=== PATIENT | male | born 1950 | race Caucasian/White ===

== ENCOUNTER 2024-05-06 12:06 | Inpatient (IN) | payer OTHER ==
[~2024-05-06] VITALS: Ht 185.4 cm; Wt 108.5 kg
[2024-05-06] MEDS ORDERED: MIRALAX *UNIT DOSE* 17GM PACKET PO PRN (14:20)
[2024-05-06] MEDS ORDERED: MAALOX 30 ML SUSP *UDC PO PRN (14:20)
[2024-05-06] MEDS ORDERED: FLEET ENEMA PR PRN (14:20)
[2024-05-06] MEDS ORDERED: MOM 30ML SUSPENSION UDC PO PRN (14:20)
[2024-05-06 15:00] VITALS: BP 180/80; TEMP 97.3; O2SAT 97
[2024-05-06] MEDS ORDERED: INSU100V6 INJ (16:04)
[2024-05-06] MEDS ORDERED: ATOR40TA75 PO (16:04)
[2024-05-06] MEDS ORDERED: PANT40TA29 PO (16:04)
[2024-05-06] MEDS ORDERED: LOPR1TAB6 PO (16:04)
[2024-05-06] MEDS ORDERED: JANU100T PO (16:04)
[2024-05-06] MEDS ORDERED: ELIQ5TAB PO (16:04)
[2024-05-06] MEDS ORDERED: METF-838 PO (16:04)
[2024-05-06] MEDS ORDERED: LISI2.5T9 PO (16:04)
[2024-05-06] MEDS ORDERED: ACET-910 PO (16:04)
[2024-05-06] MEDS ORDERED: JARD1TAB3 PO (16:04)
[2024-05-06] MEDS ORDERED: HOME MED LIST COMPLETE! XX SCH (16:10)
[2024-05-06] MEDS ORDERED: GLUCOSE 4 GM CHEW PO PRN (16:40)
[2024-05-06] MEDS ORDERED: DEXTROSE 50% 50ML SYRINGE IV PRN (16:40)
[2024-05-06] MEDS ORDERED: GLUCAGON INJ 1MG VIAL SC PRN (16:40)
[2024-05-06] MEDS: INSULIN LISPRO (NovoLOG) PER UNIT SC SCH (18:16)
[2024-05-06 19:31] VITALS: BP 152/69; TEMP 96.8; O2SAT 93
[2024-05-06] MEDS: APIXABAN 5 MG TAB (ELIQUIS) PO SCH (20:16)
[2024-05-06] MEDS: ATORVASTATIN 20 MG TAB PO SCH (20:16)
[2024-05-06] MEDS: METOPROLOL TART 50 MG TAB PO SCH (20:16)
[2024-05-06] MEDS: SENNA 8.6 MG TAB (SENOKOT) PO SCH (20:17)
[2024-05-07 04:30] VITALS: BP 158/79; TEMP 97.3; O2SAT 94
[2024-05-07 06:38] LABS: BASO # 0.1 10^3/uL (0.0-0.2); BASO % 1.2 % (0.0-1.0); EOS # 0.2 10^3/uL (0.0-0.5); EOS % 2.5 % (0.0-3.0); HEMATOCRIT 48.1 % (42.0-52.0); HEMOGLOBIN 15.7 g/dl (13.5-17.5); LYMPH # 1.6 10^3/uL (1.5-5.0); LYMPH % 17.6 % (24.0-44.0); MEAN CORPUSCULAR HEMOGLOBIN 30.1 pg (27.0-33.0); MEAN CORPUSCULAR HGB CONC 32.6 g/dl (32.0-36.5); MEAN CORPUSCULAR VOLUME 92.1 fl (80.0-96.0); MONO % 11.1 % (2.0-8.0); NEUTROPHILS # 6.1 10^3/uL (1.5-8.5); NEUTROPHILS % 67.3 % (36.0-66.0); PLATELET COUNT, AUTOMATED 269 10^3/uL (150-450); RED BLOOD COUNT 5.22 10^6/uL (4.30-6.10); WHITE BLOOD COUNT 9.1 10^3/uL (4.0-10.0)
[2024-05-07 07:00] LABS: BLOOD UREA NITROGEN 22 MG/DL (9-23); CALCIUM LEVEL 8.6 MG/DL (8.3-10.6); CARBON DIOXIDE LEVEL 23 MMOL/L (20-31); CHLORIDE LEVEL 110 MMOL/L (98-107); GLOMERULAR FILTRATION RATE > 60.0 (>42); GLUCOSE, FASTING 127 MG/DL (74-106); POTASSIUM SERUM 4.1 MMOL/L (3.5-5.1); SODIUM LEVEL 141 MMOL/L (136-145)
[2024-05-07] MEDS: metFORMIN XR 500MG TAB *GLUCOPHAGE XR PO SCH (08:02)
[2024-05-07] MEDS: PANTOPRAZOLE 40MG TAB (PROTONIX) PO SCH (08:03)
[2024-05-07] MEDS: LISINOPRIL *2.5 MG* TAB PO SCH (08:03)
[2024-05-07] MEDS: MIRALAX *UNIT DOSE* 17GM PACKET PO SCH (08:03)
[2024-05-07] MEDS ORDERED: PANTOPRAZOLE 40MG TAB (PROTONIX) PO SCH (09:00)
[2024-05-07] MEDS ORDERED: METAMUCIL (PSYLLIUM) PACKET PO SCH (09:00)
[2024-05-07 12:00] VITALS: BP 152/80; TEMP 97.4; O2SAT 96
[2024-05-07] MEDS: ACETAMINOPHEN TAB 650MG DOSE (2X325MG) PO PRN (14:05)
[2024-05-07] MEDS: BISACODYL 10MG SUPP PR PRN (18:21)
[2024-05-07 20:00] VITALS: BP 120/59; TEMP 97.4; O2SAT 97
[2024-05-07] MEDS: FIBER-CON 625 MG TAB PO SCH (20:03)
[2024-05-08 04:00] VITALS: BP 121/62; TEMP 97; O2SAT 97
[2024-05-08 07:42] VITALS: BP 120/70
[2024-05-08] MEDS: lisinopriL 5 MG TAB PO SCH (07:46)
[2024-05-08 12:00] VITALS: BP 105/57; TEMP 97.3; O2SAT 97
[2024-05-08 20:00] VITALS: BP 119/56; TEMP 97.5; O2SAT 93
[2024-05-09 04:00] VITALS: BP 124/68; TEMP 97; O2SAT 97
[2024-05-09 08:05] VITALS: BP 120/70
[2024-05-09 12:00] VITALS: BP 112/60; TEMP 97.5; O2SAT 94
[2024-05-09] MEDS: FIBER-CON 625 MG TAB PO SCH (15:45)
[2024-05-09 20:00] VITALS: BP 126/58; TEMP 97.9; O2SAT 97
[2024-05-10 04:00] VITALS: BP 105/59; TEMP 98.1; O2SAT 95
[2024-05-10] MEDS ORDERED: VARIBAR PUDDING 40% w/v 230ML TUBE As Ordered ONE (11:16)
[2024-05-10] MEDS ORDERED: VARIBAR NECTAR 40% w/v 240ML SUSP BTL As Ordered ONE (11:16)
[2024-05-10] MEDS ORDERED: BARIUM SULFATE 700 MG TABLET (E-Z-DISK) As Ordered ONE (11:17)
[2024-05-10] MEDS ORDERED: E-Z-PAQUE 96% w/w SUSP 176GM BTL As Ordered ONE (11:17)
[2024-05-10 13:43] VITALS: BP 107/59; TEMP 97.4; O2SAT 94
[2024-05-10 20:00] VITALS: BP 130/61; TEMP 98.4; O2SAT 94
[2024-05-11 04:00] VITALS: BP 133/82; TEMP 97.7; O2SAT 97
[2024-05-11] MEDS: SITagliptin 50 MG TAB (JANUVIA) PO SCH (08:35)
[2024-05-11 12:00] VITALS: BP 134/61; TEMP 99.1; O2SAT 97
[2024-05-11 20:00] VITALS: BP 117/55; TEMP 98.2; O2SAT 96
[2024-05-11] MEDS: ONDANSETRON 4MG TAB PO PRN (20:23)
[2024-05-11] MEDS: LOPERAMIDE 2 MG CAPLET PO PRN (20:23)
[2024-05-12 04:00] VITALS: BP 111/58; TEMP 97.8; O2SAT 95
[2024-05-12 12:00] VITALS: BP 103/57; TEMP 98.7; O2SAT 96
[2024-05-12 20:00] VITALS: BP 117/56; TEMP 98.3; O2SAT 94
[2024-05-13 04:00] VITALS: BP 124/60; TEMP 98.2; O2SAT 96
[2024-05-13 12:00] VITALS: BP 109/56; TEMP 98.2; O2SAT 99
[2024-05-13 20:00] VITALS: BP 123/65; TEMP 99; O2SAT 95
[2024-05-14 04:00] VITALS: BP 111/58; TEMP 98.2; O2SAT 95
[2024-05-14] MEDS: SIMETHICONE 80MG CHEW TAB PO PRN (08:30)
[2024-05-14] MEDS: **hydrALAZINE HCL** 25 MG TAB PO PRN (08:40)
[2024-05-14 12:00] VITALS: BP 120/70; TEMP 97.7; O2SAT 95
[2024-05-14] MEDS: ACETAMINOPHEN 500 MG TAB PO SCH (16:29)
[2024-05-14 20:00] VITALS: BP 100/54; TEMP 97.7; O2SAT 95
[2024-05-15 04:00] VITALS: BP 137/66; TEMP 98; O2SAT 97
[2024-05-15] MEDS: FIBER-CON 625 MG TAB PO SCH (08:51)
[2024-05-15] MEDS: LIDOCAINE 5% (LIDODERM) PATCH TD SCH (08:54)
[2024-05-15] MEDS: METHYLPHENIDATE 5 MG TAB PO STA (10:58)
[2024-05-15 12:00] VITALS: BP 108/56; TEMP 98.4; O2SAT 99
[2024-05-15] MEDS: METHYLPHENIDATE 5 MG TAB PO SCH (16:51)
[2024-05-15 20:00] VITALS: BP 111/58; TEMP 98.1; O2SAT 98
[2024-05-16 04:00] VITALS: BP 101/50; TEMP 98.2; O2SAT 99
[2024-05-16 12:00] VITALS: BP 107/56; TEMP 99.4; O2SAT 96
[2024-05-16 20:00] VITALS: BP 131/60; TEMP 98.3; O2SAT 96
[2024-05-17 04:00] VITALS: BP 129/60; TEMP 97.9; O2SAT 97
[2024-05-17] MEDS: METHYLPHENIDATE 5 MG TAB PO SCH (06:11)
[2024-05-17 11:05] VITALS: BP 142/65; O2SAT 98
[2024-05-17 12:02] VITALS: BP 142/64; TEMP 98.8; O2SAT 98
[2024-05-17] MEDS ORDERED: ERYTHROMYCIN OPHTH OINT OS ONE (15:00)
[2024-05-17] MEDS: ARTIFICIAL TEARS DROPS 15ML BTL (VISINE DRY RELIEF) OU SCH (17:52)
[2024-05-17] MEDS: ERYTHROMYCIN OPHTH OINT OS SCH (17:52)
[2024-05-17 20:00] VITALS: BP 128/64; TEMP 98.5; O2SAT 95
[2024-05-18 04:00] VITALS: BP 117/64; TEMP 98.4; O2SAT 95
[2024-05-18 12:00] VITALS: BP 128/62; TEMP 98.3; O2SAT 98
[2024-05-18 20:00] VITALS: BP 121/69; TEMP 98.5; O2SAT 96
[2024-05-19 04:00] VITALS: BP 152/78; TEMP 98.2; O2SAT 93
[2024-05-19 07:28] VITALS: BP 137/68
[2024-05-19 12:00] VITALS: BP 132/62; TEMP 97.8; O2SAT 97
[2024-05-19 20:00] VITALS: BP 138/64; TEMP 97.2; O2SAT 97
[2024-05-20 04:00] VITALS: BP 141/66; TEMP 98.2; O2SAT 96
[2024-05-20] MEDS: ACETAMINOPHEN TAB 650MG DOSE (2X325MG) PO ONE (05:15)
[2024-05-20 12:00] VITALS: BP 138/72; TEMP 98.4; TEMP 98.5; O2SAT 96; O2SAT 98
[2024-05-20] MEDS ORDERED: ACETAMINOPHEN TAB 650MG DOSE (2X325MG) PO PRN (13:00)
[2024-05-20 13:02] VITALS: BP 150/80; TEMP 97.8; O2SAT 94
[2024-05-20] MEDS: guaiFENesin SYRUP 200MG 10ML UDC PO ONE (13:51)
[2024-05-20 20:00] VITALS: BP 149/65; TEMP 98.6; O2SAT 92
[2024-05-21] MEDS: BISACODYL 5MG TAB PO PRN (00:04)
[2024-05-21 04:00] VITALS: BP 141/65; TEMP 97.5; O2SAT 96
[2024-05-21] MEDS: guaiFENesin SYRUP 200MG 10ML UDC PO SCH (07:58)
[2024-05-21 12:00] VITALS: BP 157/69; TEMP 98.6; O2SAT 95
[2024-05-21 20:00] VITALS: BP 119/58; TEMP 98.6; O2SAT 98
[2024-05-22 00:50] VITALS: O2SAT 98
[2024-05-22 04:00] VITALS: BP 115/55; TEMP 98.3; O2SAT 96
[2024-05-22 12:00] VITALS: BP 128/64; TEMP 98.9; O2SAT 96
[2024-05-22 19:25] VITALS: BP 132/63; TEMP 97.8; O2SAT 96
[2024-05-23 04:14] VITALS: BP 140/66; TEMP 98.7; O2SAT 96
[2024-05-23 11:43] VITALS: BP 115/58; TEMP 98.7; O2SAT 98
[2024-05-23] MEDS: BACLOFEN 5MG PER 1/2 TABLET PO SCH (14:24)
[2024-05-23 20:00] VITALS: BP 138/63; TEMP 98.2; O2SAT 93
[2024-05-24 03:09] VITALS: BP 132/60; TEMP 98.6; O2SAT 95
[2024-05-24 06:51] LABS: BASO # 0.1 10^3/uL (0.0-0.2); BASO % 1.4 % (0.0-1.0); EOS # 0.3 10^3/uL (0.0-0.5); EOS % 5.2 % (0.0-3.0); HEMATOCRIT 41.4 % (42.0-52.0); HEMOGLOBIN 13.7 g/dl (13.5-17.5); LYMPH # 1.7 10^3/uL (1.5-5.0); LYMPH % 33.1 % (24.0-44.0); MEAN CORPUSCULAR HEMOGLOBIN 30.3 pg (27.0-33.0); MEAN CORPUSCULAR HGB CONC 33.1 g/dl (32.0-36.5); MEAN CORPUSCULAR VOLUME 91.6 fl (80.0-96.0); MONO # 0.6 10^3/uL (0.0-0.8); MONO % 12.4 % (2.0-8.0); NEUTROPHILS # 2.5 10^3/uL (1.5-8.5); NEUTROPHILS % 47.7 % (36.0-66.0); PLATELET COUNT, AUTOMATED 217 10^3/uL (150-450); RED BLOOD COUNT 4.52 10^6/uL (4.30-6.10); WHITE BLOOD COUNT 5.2 10^3/uL (4.0-10.0)
[2024-05-24 07:19] LABS: BLOOD UREA NITROGEN 10 MG/DL (9-23); CALCIUM LEVEL 8.5 MG/DL (8.3-10.6); CARBON DIOXIDE LEVEL 26 MMOL/L (20-31); CHLORIDE LEVEL 111 MMOL/L (98-107); CREATININE FOR GFR 0.96 MG/DL (0.70-1.30); GLOMERULAR FILTRATION RATE > 60.0 (>42); GLUCOSE, FASTING 136 MG/DL (74-106); SODIUM LEVEL 140 MMOL/L (136-145)
[2024-05-24 12:00] VITALS: BP 140/70; TEMP 98.8; O2SAT 100
[2024-05-24 20:00] VITALS: BP 121/52; TEMP 98.3; O2SAT 96
[2024-05-25 04:00] VITALS: BP 128/58; TEMP 97.7; O2SAT 97
[2024-05-25 12:00] VITALS: BP 126/89; TEMP 98.2; O2SAT 100
[2024-05-25 20:00] VITALS: BP 115/58; TEMP 98.3; O2SAT 97
[2024-05-26 04:00] VITALS: BP 117/56; TEMP 98.1; O2SAT 97
[2024-05-26 12:00] VITALS: BP 120/62; TEMP 97.7; O2SAT 97
[2024-05-26 19:36] VITALS: BP 148/70; TEMP 98.6; O2SAT 93
[2024-05-26] MEDS: BACLOFEN 10 MG TAB PO SCH (20:28)
[2024-05-27 04:06] VITALS: BP 110/59; TEMP 97.9; O2SAT 96
[2024-05-27] MEDS ORDERED: PERMETHRIN 5% CREAM 60 GM TOP ONE (10:55)
[2024-05-27 12:00] VITALS: BP 138/60; TEMP 97.7; O2SAT 94
[2024-05-27 20:00] VITALS: BP 161/74; TEMP 98.1; O2SAT 95
[2024-05-28 04:00] VITALS: BP 158/66; TEMP 98.4; O2SAT 95
[2024-05-28 07:32] VITALS: BP 158/68
[2024-05-28 12:00] VITALS: BP 129/66; TEMP 98.4; O2SAT 97
[2024-05-28] MEDS: FAMOTIDINE 20 MG TAB PO ONE (12:52)
[2024-05-28] MEDS ORDERED: BACL10TA2 PO (14:31)
[2024-05-28] MEDS ORDERED: ACET-683 PO (14:31)
[2024-05-28] MEDS ORDERED: ONDA-83 PO (14:31)
[2024-05-28] MEDS ORDERED: ACET1TAB55 PO (14:31)
[2024-05-28] MEDS ORDERED: LISI5TAB11 PO (14:31)
[2024-05-28] MEDS ORDERED: FAMO20TA PO (14:31)
[2024-05-28] MEDS ORDERED: Peg 400/Hypromellose/Glycerin OU (14:31)
[2024-05-28] MEDS ORDERED: SIME80TA16 PO (14:31)
[2024-05-28] MEDS ORDERED: METH5TAB76 PO (14:31)
[2024-05-28] MEDS ORDERED: BISAC5TA PO (14:31)
[2024-05-28] MEDS ORDERED: LIDO5TD TD (14:31)
[2024-05-28] MEDS ORDERED: FIBE62TA PO (14:31)
[2024-05-28 21:45] VITALS: BP 150/70; TEMP 97.9; O2SAT 92
[2024-05-28] MEDS: FAMOTIDINE 20 MG TAB PO SCH (21:50)
[2024-05-28 22:31] VITALS: BP 150/70; TEMP 97.9; O2SAT 92
[2024-05-28 22:57] LABS: BASO # 0.1 10^3/uL (0.0-0.2); BASO % 0.8 % (0.0-1.0); EOS # 0.2 10^3/uL (0.0-0.5); EOS % 2.5 % (0.0-3.0); HEMATOCRIT 43.5 % (42.0-52.0); HEMOGLOBIN 14.6 g/dl (13.5-17.5); LYMPH % 22.8 % (24.0-44.0); MEAN CORPUSCULAR HEMOGLOBIN 30.9 pg (27.0-33.0); MEAN CORPUSCULAR HGB CONC 33.6 g/dl (32.0-36.5); MONO # 1.1 10^3/uL (0.0-0.8); MONO % 12.8 % (2.0-8.0); NEUTROPHILS # 5.3 10^3/uL (1.5-8.5); NEUTROPHILS % 60.9 % (36.0-66.0); PLATELET COUNT, AUTOMATED 217 10^3/uL (150-450); RED BLOOD COUNT 4.73 10^6/uL (4.30-6.10); WHITE BLOOD COUNT 8.7 10^3/uL (4.0-10.0)
[2024-05-28 23:09] LABS: INR 1.38; PARTIAL THROMBOPLASTIN TIME 36.1 SECONDS (24.8-34.2); PROTHROMBIN TIME 16.5 SECONDS (12.5-14.5)
[2024-05-28 23:30] LABS: ALKALINE PHOSPHATASE 71 U/L (46-116); ALT/SGPT 28 U/L (7.0-40); AST/SGOT 29 U/L (<34); BILIRUBIN,TOTAL 0.7 MG/DL (0.3-1.2); BLOOD UREA NITROGEN 12 MG/DL (9-23); CALCIUM LEVEL 9.2 MG/DL (8.3-10.6); CARBON DIOXIDE LEVEL 25 MMOL/L (20-31); CHLORIDE LEVEL 111 MMOL/L (98-107); CREATININE FOR GFR 1.04 MG/DL (0.70-1.30); GLOMERULAR FILTRATION RATE > 60.0 (>42); GLUCOSE, FASTING 135 MG/DL (74-106); MAGNESIUM LEVEL 1.6 MG/DL (1.8-2.4); SODIUM LEVEL 142 MMOL/L (136-145); TOTAL PROTEIN 5.9 G/DL (5.7-8.2)
[2024-05-29] MEDS ORDERED: PANTOPRAZOLE 40MG VIAL IV ONE (00:40)
[2024-05-29] MEDS ORDERED: ONDANSETRON 4MG 2ML VIAL IV PRN (00:40)
[2024-05-29] MEDS ORDERED: METOPROLOL TART 50 MG TAB PO ONE (00:45)
[2024-05-29] MEDS ORDERED: MED REC COMMENT (07:46)
[2024-05-29] MEDS ORDERED: METOPROLOL TART 50 MG TAB PO SCH (09:00)
[2024-05-29] MEDS ORDERED: APIXABAN 5 MG TAB (ELIQUIS) PO SCH (09:00)
[2024-05-29] MEDS ORDERED: ASPI81CH8 PO (14:03)
[2024-05-29] MEDS ORDERED: ATORVASTATIN 20 MG TAB PO SCH (21:00)
== END 2024-05-28 23:45 | disposition short-term general hospital (02) | DRG 57 ==
LOC: M PM&R 14:49
PROVIDERS: ADMIT Physical Medicine & Rehabilitation; ATTEND Physical Medicine & Rehabilitation
DX: I69.353 Hemiplegia and hemiparesis following cerebral infarction affecting right non-dominant side (principal); I69.320 Aphasia following cerebral infarction; I69.391 Dysphagia following cerebral infarction; R07.89 Other chest pain; R13.10 Dysphagia, unspecified; I69.328 Other speech and language deficits following cerebral infarction; I10 Essential (primary) hypertension; R11.10 Vomiting, unspecified; E11.9 Type 2 diabetes mellitus without complications; H53.9 Unspecified visual disturbance; R19.7 Diarrhea, unspecified; I48.91 Unspecified atrial fibrillation; E78.5 Hyperlipidemia, unspecified; M25.511 Pain in right shoulder; H10.9 Unspecified conjunctivitis; I69.392 Facial weakness following cerebral infarction; Z74.09 Other reduced mobility; Z74.1 Need for assistance with personal care; Z79.4 Long term (current) use of insulin; Z79.899 Other long term (current) drug therapy; Z79.01 Long term (current) use of anticoagulants

== ENCOUNTER 2024-05-28 22:39 | Inpatient (IN) | payer OTHER ==
[~2024-05-28] VITALS: Ht 170.2 cm; Wt 105.1 kg
[~2024-05-28 22:39] MED LIST: ACET-683 PO; ACET-910 PO; ACET1TAB55 PO; ATOR40TA75 PO; BACL10TA2 PO; BISAC5TA PO; ELIQ5TAB PO; FAMO20TA PO; FIBE62TA PO; INSU100V6 INJ; JANU100T PO; JARD1TAB3 PO; LIDO5TD TD; LISI2.5T9 PO; LISI5TAB11 PO; LOPR1TAB6 PO; METF-838 PO; METH5TAB76 PO; ONDA-83 PO; PANT40TA29 PO; Peg 400/Hypromellose/Glycerin OU; SIME80TA16 PO
[2024-05-28 23:46] VITALS: BP 168/77; O2SAT 95
[2024-05-29] MEDS: NS 1,000 ML IV SCH ×2 (00:52→15:15)
[2024-05-29] MEDS: MAG SULF 1GM/100ML (MAG RUN) 1 GM in IV 1 EA IV ONE (00:53)
[2024-05-29] MEDS ORDERED: ONDANSETRON 4MG 2ML VIAL IV PRN (01:00)
[2024-05-29] MEDS: METOPROLOL 5 MG/5 ML VIAL IV STA (01:08)
[2024-05-29] MEDS: PANTOPRAZOLE 40MG VIAL IV ONE (01:18)
[2024-05-29] MEDS: METOPROLOL TART 50 MG TAB PO ONE (02:53)
[2024-05-29 04:27] VITALS: BP 155/69; TEMP 98.6; O2SAT 97
[2024-05-29 06:36] LABS: HEMATOCRIT 42.3 % (42.0-52.0); MEAN CORPUSCULAR HGB CONC 33.1 g/dl (32.0-36.5); MEAN CORPUSCULAR VOLUME 93.8 fl (80.0-96.0); PLATELET COUNT, AUTOMATED 194 10^3/uL (150-450); RED BLOOD COUNT 4.51 10^6/uL (4.30-6.10); WHITE BLOOD COUNT 6.2 10^3/uL (4.0-10.0)
[2024-05-29 07:03] LABS: ALKALINE PHOSPHATASE 66 U/L (46-116); ALT/SGPT 26 U/L (7.0-40); AST/SGOT 25 U/L (<34); BILIRUBIN,TOTAL 0.7 MG/DL (0.3-1.2); BLOOD UREA NITROGEN 12 MG/DL (9-23); CALCIUM LEVEL 8.5 MG/DL (8.3-10.6); CARBON DIOXIDE LEVEL 26 MMOL/L (20-31); CHLORIDE LEVEL 110 MMOL/L (98-107); CREATININE FOR GFR 0.97 MG/DL (0.70-1.30); GLOMERULAR FILTRATION RATE > 60.0 (>42); GLUCOSE, FASTING 129 MG/DL (74-106); MAGNESIUM LEVEL 1.9 MG/DL (1.8-2.4); SODIUM LEVEL 140 MMOL/L (136-145); TOTAL PROTEIN 5.6 G/DL (5.7-8.2)
[2024-05-29 07:44] VITALS: BP 160/74; TEMP 97.5; O2SAT 96
[2024-05-29] MEDS ORDERED: MED REC COMMENT (07:46)
[2024-05-29] MEDS ORDERED: HOME MED LIST COMPLETE! XX SCH (07:55)
[2024-05-29] MEDS: DOCUSATE SODIUM 100MG CAPSULE PO SCH (10:00)
[2024-05-29 12:00] VITALS: BP 145/62; TEMP 98.6; O2SAT 96
[2024-05-29] MEDS: APIXABAN 5 MG TAB (ELIQUIS) PO SCH (12:28)
[2024-05-29] MEDS: METOPROLOL TART 50 MG TAB PO SCH (12:31)
[2024-05-29] MEDS ORDERED: ASPI81CH8 PO (14:03)
[2024-05-29] MEDS: ASPIRIN 81MG CHEW TABLET PO ONE (15:28)
[2024-05-29 15:51] VITALS: BP 146/64; TEMP 98; O2SAT 96
[2024-05-29] MEDS: INSULIN LISPRO (NovoLOG) PER UNIT SC SCH ×2 (17:30→21:00)
[2024-05-29] MEDS ORDERED: GLUCAGON INJ 1MG VIAL SC PRN (18:25)
[2024-05-29] MEDS ORDERED: DEXTROSE 50% 50ML SYRINGE IV PRN (18:25)
[2024-05-29] MEDS ORDERED: GLUCOSE 4 GM CHEW PO PRN (18:25)
[2024-05-29 19:49] VITALS: BP 138/67; TEMP 97.7; O2SAT 96
[2024-05-29] MEDS: ACETAMINOPHEN TAB 650MG DOSE (2X325MG) PO PRN (22:04)
[2024-05-29] MEDS: ATORVASTATIN 20 MG TAB PO SCH (22:05)
[2024-05-30 03:59] VITALS: BP 142/63; TEMP 97.7; O2SAT 95
[2024-05-30 04:00] VITALS: BP 142/63; TEMP 97.7; O2SAT 95
[2024-05-30 06:05] LABS: HEMATOCRIT 41.4 % (42.0-52.0); HEMOGLOBIN 13.8 g/dl (13.5-17.5); MEAN CORPUSCULAR HEMOGLOBIN 30.9 pg (27.0-33.0); MEAN CORPUSCULAR HGB CONC 33.3 g/dl (32.0-36.5); MEAN CORPUSCULAR VOLUME 92.6 fl (80.0-96.0); PLATELET COUNT, AUTOMATED 194 10^3/uL (150-450); RED BLOOD COUNT 4.47 10^6/uL (4.30-6.10); WHITE BLOOD COUNT 5.7 10^3/uL (4.0-10.0)
[2024-05-30 06:34] LABS: ALBUMIN 2.8 G/DL (3.2-5.2); ALKALINE PHOSPHATASE 62 U/L (46-116); ALT/SGPT 25 U/L (7.0-40); AST/SGOT 32 U/L (<34); BILIRUBIN,TOTAL 0.9 MG/DL (0.3-1.2); BLOOD UREA NITROGEN 9 MG/DL (9-23); CALCIUM LEVEL 8.6 MG/DL (8.3-10.6); CARBON DIOXIDE LEVEL 26 MMOL/L (20-31); CHLORIDE LEVEL 113 MMOL/L (98-107); CREATININE FOR GFR 0.85 MG/DL (0.70-1.30); GLOMERULAR FILTRATION RATE > 60.0 (>42); GLUCOSE, FASTING 118 MG/DL (74-106); MAGNESIUM LEVEL 1.8 MG/DL (1.8-2.4); POTASSIUM SERUM 4.2 MMOL/L (3.5-5.1); SODIUM LEVEL 142 MMOL/L (136-145); TOTAL PROTEIN 5.5 G/DL (5.7-8.2)
[2024-05-30 08:00] VITALS: BP 155/68; TEMP 97.5; O2SAT 97
[2024-05-30] MEDS: ASPIRIN 81MG CHEW TABLET PO SCH (08:56)
[2024-05-30 08:57] VITALS: BP 155/68
[2024-05-30] MEDS: METOPROLOL TART 50 MG TAB PO SCH (08:57)
== END 2024-05-30 09:50 | DRG 65 ==
LOC: INTOOBSV 22:49 → M ED INP 22:49 → M PCU 05-29 00:13 → OBSVTOIN 05-29 15:16 → M MSPAV 05-29 18:48
PROVIDERS: ADMIT Preventive Medicine Undersea and Hyperbaric Medicine; ATTEND General Practice
DX: I63.512 Cerebral infarction due to unspecified occlusion or stenosis of left middle cerebral artery (principal); I69.351 Hemiplegia and hemiparesis following cerebral infarction affecting right dominant side; I48.0 Paroxysmal atrial fibrillation; I10 Essential (primary) hypertension; E78.5 Hyperlipidemia, unspecified; K21.9 Gastro-esophageal reflux disease without esophagitis; I69.320 Aphasia following cerebral infarction; E11.9 Type 2 diabetes mellitus without complications; Z74.09 Other reduced mobility; Z74.1 Need for assistance with personal care; R13.10 Dysphagia, unspecified; I69.391 Dysphagia following cerebral infarction